=== PATIENT | male | born 1985 ===

== ENCOUNTER 2019-12-15 02:23 | Emergency (ER) | payer SELFPAY ==
[~2019-12-15] VITALS: Ht 177.8 cm; Wt 63.6 kg
[2019-12-15 02:39] VITALS: BP 148/102
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
--- NOTE | 2019-12-15 03:18 | RAD ---
KNEE RIGHT 3V History: Pain. Trauma. Technique: 3 views right knee. Comparison: None. Findings: Normal alignment. Nondisplaced proximal fibular fracture. Minimal knee joint effusion. Mild anterior knee soft tissue swelling. Impression: 1. Acute nondisplaced proximal fibular fracture. Electronically signed by: Wilmar Glasgow DO (12/15/2019 3:15 AM) [id number]
--- NOTE | 2019-12-15 03:19 | RAD ---
ANKLE RIGHT 3V History: Trauma. Pain. Technique: 3 views right ankle. Comparison: None. Findings: Normal alignment. Symmetric ankle mortise. No fracture. Soft tissues unremarkable. Impression: 1. No acute osseous abnormality. Electronically signed by: Wilmar Glasgow DO (12/15/2019 3:16 AM) [id number]
[2019-12-15] MEDS ORDERED: traMADol 50 MG TABLET PO ONE (03:30)
[2019-12-15] MEDS ORDERED: KETOROLAC 60 MG/2 ML VIAL. IM ONE (03:30)
== END 2019-12-15 03:52 | disposition home or self-care (01) ==
LOC: ER 02:23
DX: S82.831A Other fracture of upper and lower end of right fibula, initial encounter for closed fracture (principal); M79.671 Pain in right foot; M79.604 Pain in right leg; V09.9XXA Pedestrian injured in unspecified transport accident, initial encounter; Y93.89 Activity, other specified; Y92.89 Other specified places as the place of occurrence of the external cause; Y99.8 Other external cause status
CPT/HCPCS: 29505; 29515; 73562; 73610; 99284

== ENCOUNTER 2020-05-02 23:07 | Emergency (ER) | payer SELFPAY ==
[~2020-05-02] VITALS: Ht 177.8 cm; Wt 65.9 kg
[2020-05-02 23:17] VITALS: BP 158/90
[2020-05-02] MEDS ORDERED: SULF1TAB23 PO (23:26)
--- NOTE | 2020-05-02 23:26 | PHYS DOC ---
Past Medical History Past Medical History: No Pertinent History Smoking Status: Current Every Day Smoker Alcohol Use: None General Adult EDM: Chief Complaint: LOWER EXT PAIN HPI: HPI: Patient is a 35 year old male who presents with several days of bilateral sores to his feet. Patient also notes sores on his left hand. Patient denies any fever. Patient has a chronic cough. Patient denies any trauma to the area. Patient states the pain is worse with palpation. Patient states the pain is nonradiating. Review of Systems: Review of Systems: Constitutional: Denies fever or chills. [] Eyes: Denies change in visual acuity. [] HENT: Denies nasal congestion or sore throat. [] Respiratory: Complains of cough but has no shortness of breath Cardiovascular: Denies chest pain or edema. [] GI: Denies abdominal pain, nausea, vomiting, bloody stools or diarrhea. [] : Denies dysuria. [] Musculoskeletal: Denies back pain or joint pain. [] Integument: Complains of diffuse sores on the lower extremity as well as hands Neurologic: Denies headache, focal weakness or sensory changes. [] Endocrine: Denies polyuria or polydipsia. [] Lymphatic: Denies swollen glands. [] Psychiatric: Denies depression or anxiety. [] Heart Score: Risk Factors: Risk Factors: DM, Current or recent (<one month) smoker, HTN, HLP, family history of CAD, obesity. Risk Scores: Score 0 - 3: 2.5% MACE over next 6 weeks - Discharge Home Score 4 - 6: 20.3% MACE over next 6 weeks - Admit for Clinical Observation Score 7 - 10: 72.7% MACE over next 6 weeks - Early Invasive Strategies Allergies: Allergies: Allergies Coded Allergies Type Severity Reaction Last Updated Verified No Known Drug Allergies 12/15/19 No Physical Exam: PE: Constitutional: Well developed, well nourished, no acute distress, non-toxic ap pearance. HENT: No trismus Eyes: Conjunctiva clear, EOMI Neck: Normal range of motion, no tenderness, supple, no stridor. [] Cardiovascular: Regular rate/rhythm, peripheral pulse intact, [employer] intact Lungs & Thorax: No respiratory distress Abdomen: No distension Skin: Diffuse lesions on her feet and left hand consistent with impetigo. No drainable abscess, no's significant surrounding, spreading erythema. Back: Full ROM Extremities: Normal inspection, no edema Neurologic: Alert and oriented X 3, normal motor function, , no focal deficits noted. Psychologic: Affect normal, judgement normal, mood normal. Current Patient Data: Vital Signs: Vital Signs Date Time Temp Pulse Resp B/P (MAP) Pulse Ox O2 Delivery O2 Flow Rate FiO2 05/02/20 23:17 98.2 103 20 158/90 (112) 99 Room Air 98.2 EKG: EKG: [] Radiology/Procedures: Radiology/Procedures: [] Course & Med Decision Making: Course & Med Decision Making Pertinent Labs and Imaging studies reviewed. (See chart for details) [] Wounds consistent with impetigo. No evidence of sepsis or drainable abscess. Patient nontoxic. Patient be treated oral antibiotics. Patient clinically stable. Dragon Disclaimer: Dragon Disclaimer: This electronic medical record was generated, in whole or in part, using a voice recognition dictation system. Departure Departure Impression: Primary Impression: Impetigo Disposition: HOME, SELF-CARE Condition: STABLE Referrals: NO PCP (PCP) pcp 2-3 days Patient Instructions: Impetigo Additional Instructions: EMERGENCY DEPARTMENT GENERAL DISCHARGE INSTRUCTIONS Thank you for coming to [facility] Emergency Department (ED) today and trusting us with you care. We trust that you had a positivie experience in our Emergency Department. If you wish to speak to the department management, you may call the Director at [phone]. YOUR FOLLOW UP INSTRUCTIONS ARE FOLLOWS: 1. Do you have a private Doctor? If you do not have a private doctor, please ask for a resource list of physicians or clinics that may be able to assist you with follow up care. 2. The Emergency Physicain has interpreted your x-rays. The X-Ray specialist will also review them. If there is a change in the findings, you will be notified in 48 hours when at all possible. 3. A lab test or culture has been done, your results will be reviewed and you will be notified if you need a change in treatment. ADDITIONAL INSTRUCTIONS AND INFORMATION: 1. Your care today has been supervised by a physician who is specially trained in emergency care. Many problems require more than one evaluation for a complete diagnosis and treatment. We recommend that you schedule your follow up appointment as leona mmended to ensure complete treatment of you illness or injury. If you are unable to obtain follow up care and continue to have a problem, or if your consition worsens, we recommend that you return to the ED. 2. We are not able to safely determine your condition over the phone nor are we able to give sound medical advice over the phone. For these safety reasons, if you call for medical advice we will ask you to come to the ED for further evaluation. 3. If you have any questions regarding these discharge instructions please call the ED at [phone]. SAFETY INFORMATION: In the interest of safety, wellness, and injury prevention; we encourage you to wear your sealbelt, if you smoke; quite smoking, and we encourage family to use a protective helmet for bicycling and other sporting events that present an increased risk for head injury. IF YOUR SYMPTOMS WORSEN OR NEW SYMPTOMS DEVELOP, OR YOU HAVE CONCERNS ABOUT YOUR CONDITION; OR IF YOUR CONDITION WORSENS WHILE YOU ARE WAITING FOR YOUR FOLLOW UP APPOINTMENT; EITHER CONTACT YOUR PRIMARY CARE DOCTOR, THE PHYSICIAN WHOSE NAME AND NUMBER YOU WERE GIVEN, OR RETURN TO THE ED IMMEDIATELY. Scripts Sulfamethoxazole/Trimethoprim (BACTRIM 400-80 MG TABLET) 1 Each Tablet 1 TAB PO BID for 10 Days, #20 TAB 0 Refills Prov: NITA QUINTERO MD 05/02/20 Justicifation of Admission Dx: Justifications for Admission: Justification of Admission Dx: N/A NITA QUINTERO MD May 02, 2020 23:26
== END 2020-05-02 23:51 | disposition home or self-care (01) ==
LOC: ER 23:07
DX: L01.09 Other impetigo (principal); M79.642 Pain in left hand; R05 Cough; F17.200 Nicotine dependence, unspecified, uncomplicated
CPT/HCPCS: 99283